=== PATIENT | female | born 1960 | race Caucasian/White ===

== ENCOUNTER 2019-11-25 18:34 | Emergency (ER) | payer MEDICARE, BC, SELFPAY ==
[2019-11-25 18:38] VITALS: BP 181/99; PULSE 89; RESP 20; TEMP 37.2; O2SAT 95; BMI 27.4
--- NOTE | 2019-11-25 18:54 | [facility].EDGENADL ---
ED Disposition Clinical Impression: Abscess, Laceration, Avulsion of skin Disposition: Home, Self-Care Condition on Discharge: Good Instructions: DI for Laceration Repair Additional Instructions: Please follow-up with primary care. Prescriptions: clindamycin HCL [Clindamycin HCl] 300 mg PO Q8H 10 Days #30 cap Transmission Status: Sent to [id number] Fluconazole [Diflucan 100mg tablet] 100 mg PO DAILY 4 Days #4 tab Transmission Status: Sent to [id number] Referrals: Provider,Referral, [Primary Care Provider] - - Critical Care Critical Care Time: No Attestation: On 11/25/19, the high probability of a clinically significant, sudden or life threatening deterioration of the following system(s) required my full and direct attention, intervention and personal management. The time I documented below is in addition to time spent performing reported procedures but includes the following listed in this critical care notation. Medical Decision Making - Aaron Inquiry Pt receiving controlled substance: No Vital Signs: 11/25/19 18:38 Temperature 99 F Temperature Source Oral Pulse Rate [Right] 89 Respiratory Rate 20 Blood Pressure [Right Arm] 181/99 H Blood Pressure Mean [Right Arm] 126 02 Sat by Pulse Oximetry 95 General Adult HPI - General Chief complaint: Wound/Laceration Stated complaint: Surg bleeding toe Time Seen by Provider: 11/25/19 18:55 Mode of Arrival: Ambulatory Source of Information: Patient Limitations: No Limitations Description of Symptoms (Recalled from ER Triage Doc. by RN): PT PRESENTS WITH INJURY TO LEFT PINKY TOE THAT HAPPENED 2 WEEKA AGO AND NOW PT STATES THE PAIN HAS BECOME INCREASINGLY WORSE AND BLEEDING. DENIES COUGH, FEVER, SOA OR TRAVEL HX. - History of Present Illness HPI narrative: 59-year-old female presents the ED after a laceration repair on the left foot at the base the fifth digit. She stated the sutures did come out a couple of days ago and she went back to [facility] they did not offer any treatment per patient she presents today with some increased redness and swelling in the area and pain. Patient denies any recent fever shakes or chills. Patient denies any other symptoms. Patient denies any illness. - Related Data Home Medications Medication Instructions Recorded Confirmed Gabapentin [Gabapentin 400mg Cap] 400 mg PO BID 02/20/18 02/20/18 Levothyroxine Sodium 100 mg PO DAILY 02/20/18 02/20/18 [Levothyroxine 100mcg (0.1MG) Tab] Mirtazapine [Remeron] 30 mg PO HS 02/20/18 02/20/18 Previous Rx's Medication Instructions Recorded Fluconazole [Diflucan 100mg tablet] 100 mg PO DAILY 4 Days #4 tab 11/25/19 clindamycin HCL [Clindamycin HCl] 300 mg PO Q8H 10 Days #30 cap 11/25/19 Allergies Allergy/AdvReac Type Severity Reaction Status Date / Time Penicillins Allergy Verified 02/20/18 19:42 [facility] History - Hepatitis A Screen Drug use history?: No High risk sexual behaviors?: No History of sexually transmitted infection?: No Currently employed?: No Childcare worker?: No Do you have indoor plumbing?: Yes Do you have electricity?: Yes Attestation statement:: This patient has been screened for Hepatitis A risk factors. I have reviewed the patient's past medical history: Yes Medical History: Reports:: Cancer (throat) Denies:: Diabetes Mellitus Type 1, Diabetes Mellitus Type 2, MRSA Laterality Cases: Bilateral: Tonsillectomy Amputation: No Fractures: No - Social History Smoking Status: Former smoker Alcohol Intake: never Substance Use Type: marijuana Occupational Status: disabled ROS Obtained: Yes All systems reviewed & no additional complaints - Constitutional Constitutional: Reports system reviewed and no additional complaints, except as docu - Eyes Eyes: Reports system reviewed and no additional complaints, except as docu - ENT Ears, Nose, Mouth, and Throat: Reports system reviewed and no addition
[2019-11-25 19:04] VITALS: BP 174/87; PULSE 87; RESP 20; TEMP 36.8; O2SAT 98
== END 2019-11-25 19:05 | disposition home or self-care (01) ==
PROVIDERS: Emergency Provider Family Medicine
DX: T81.41XD Infection following a procedure, superficial incisional surgical site, subsequent encounter (principal); Z87.891 Personal history of nicotine dependence; F15.10 Other stimulant abuse, uncomplicated; Z88.0 Allergy status to penicillin
CPT/HCPCS: 96372; 99281